=== PATIENT | male | born 1940 | race Caucasian/White ===

== ENCOUNTER → 2018-02-01 08:59 | Outpatient (CLI) | payer MEDICARE, SELFPAY ==
[2018-02-01 09:25] LABS: Add Manual Diff / Slide Review NO; Basophils Percent Auto 1.8 % (0-2); Eosinophils Percent Auto 1.2 % (2-4); Hematocrit 39.1 % (41-53); Hemoglobin 13.3 g/dL (13.5-17.5); Lymphocytes Percent Auto 22.3 % (25-40); Mean Corpuscular HGB Conc 34.1 % (30-36); Mean Corpuscular Hemoglobin 33.5 PG (26-34); Mean Corpuscular Volume 98.3 fL (80-100); Monocytes Percent Auto 10.6 % (3-14); Neutrophils Absolute Auto 2800 /uL (3000-5900); Neutrophils Percent Auto 64.1 % (50-75); Platelet Count 246 X10^3/uL (150-400); Red Blood Cell Count 3.98 X10^6/uL (4.5-5.9); White Blood Cell Count 4.3 X10^3/uL (4.5-11.0)
[2018-02-01 09:37] LABS: Alanine Aminotransferase 26 IU/L (21-72); Albumin 4.5 g/dL (3.5-5.0); Albumin Globulin Ratio 0.9 (1.0-2.8); Alkaline Phosphatase 48 U/L (38-126); Aspartate Aminotransferase 30 IU/L (17-59); BUN Creatinine Ratio 27.8 (6-22); Bilirubin Total 0.7 mg/dL (0.2-1.3); Blood Urea Nitrogen 25 mg/dL (9-20); Calcium 10.1 mg/dL (8.4-10.2); Carbon Dioxide 27 mmol/L (22-32); Chloride 103 mmol/L (98-107); Estimated Glomerular Filt Rate > 60.0 mL/min (>60); Globulin 5.1 g/dL (1.7-4.1); Glucose 102 mg/dL (80-110); HEMOLYSIS < 15 (0-50); Potassium 4.3 mmol/L (3.4-5.1); Sodium 143 mmol/L (137-145); Total Protein 9.6 g/dL (6.3-8.2)
[2018-02-04 15:03] LABS: Immunoglobulin M, Quantitative 4015 mg/dL (48-271)
[2018-02-04 16:15] LABS: Free Kappa Light Chain 37.5 mg/L (3.3-19.4); Free Kappa/ Lambda Ratio 3.99 (0.26-1.65); Free Lambda 9.4 mg/L (5.7-26.3)
[2018-02-05 16:05] LABS: Abnormal Protein Band 1 3.1 g/dL (NONE DETECTED); Albumin 4.1 g/dL (3.8-4.8); Alpha 1 Globulin 0.3 g/dL (0.2-0.3); Alpha 2 Globulin 0.6 g/dL (0.5-0.9); Beta 1 Globulin 0.4 g/dL (0.4-0.6); Gamma Globulin 3.4 g/dL (0.8-1.7)
== END ==
PROVIDERS: Family Provider Family Medicine; PCP Family Medicine; Visit Provider Internal Medicine Hematology & Oncology
DX: C88.0 Waldenstrom macroglobulinemia (principal)
CPT/HCPCS: 36415; 80053; 82232; 82784; 83883; 84155; 84165; 85025

== ENCOUNTER → 2018-07-16 14:20 | Outpatient (CLI) | payer MEDICARE, SELFPAY ==
[2018-07-16 14:41] LABS: Add Manual Diff / Slide Review NO; Basophils Absolute Auto 100 /uL (0-100); Basophils Percent Auto 1.9 % (0-2); Eosinophils Absolute Auto 100 /uL (0-450); Eosinophils Percent Auto 1.3 % (2-4); Hematocrit 38.7 % (41-53); Lymphocytes Absolute Auto 1200 /uL (1100-4500); Lymphocytes Percent Auto 23.2 % (25-40); Mean Corpuscular HGB Conc 33.5 % (30-36); Mean Corpuscular Hemoglobin 33.2 PG (26-34); Mean Corpuscular Volume 99.2 fL (80-100); Monocytes Absolute Auto 500 /uL (0-900); Monocytes Percent Auto 10.4 % (3-14); Neutrophils Absolute Auto 3200 /uL (1500-7000); Neutrophils Percent Auto 63.2 % (50-75); Platelet Count 235 X10^3/uL (150-400); Red Cell Distribution Width 13.9 % (11.6-14.8); White Blood Cell Count 5.1 X10^3/uL (4.5-11.0)
[2018-07-16 16:02] LABS: Alanine Aminotransferase 14 IU/L (21-72); Albumin 4.2 g/dL (3.5-5.0); Albumin Globulin Ratio 0.9 (1.0-2.8); Alkaline Phosphatase 48 U/L (38-126); Aspartate Aminotransferase 20 IU/L (17-59); Bilirubin Total 0.5 mg/dL (0.2-1.3); Blood Urea Nitrogen 28 mg/dL (9-20); Calcium 10.1 mg/dL (8.4-10.2); Carbon Dioxide 28 mmol/L (22-32); Chloride 106 mmol/L (98-107); Estimated Glomerular Filt Rate > 60.0 mL/min (>60); Globulin 4.9 g/dL (1.7-4.1); Glucose 92 mg/dL (80-110); HEMOLYSIS < 15 (0-50); Potassium 4.3 mmol/L (3.4-5.1); Sodium 141 mmol/L (137-145); Total Protein 9.1 g/dL (6.3-8.2)
[2018-07-19 14:26] LABS: Abnormal Protein Band 1 2.8 g/dL (NONE DETECTED); Albumin 3.7 g/dL (3.8-4.8); Alpha 1 Globulin 0.3 g/dL (0.2-0.3); Alpha 2 Globulin 0.6 g/dL (0.5-0.9); Beta 1 Globulin 0.3 g/dL (0.4-0.6); Gamma Globulin 3.1 g/dL (0.8-1.7); Protein, Total 8.2 g/dL (6.1-8.1)
== END ==
PROVIDERS: Family Provider Family Medicine; PCP Family Medicine
DX: C83.30 Diffuse large B-cell lymphoma, unspecified site (principal)
CPT/HCPCS: 36415; 80053; 84155; 84165; 85025

== ENCOUNTER 2020-10-29 21:36 | Emergency (ER) | payer MEDICARE, SELFPAY ==
[2020-10-29 21:48] VITALS: BP 172/114; PULSE 77; RESP 16; TEMP 37; O2SAT 98; BMI 23.1
[2020-10-29] MEDS: LIDO 1%/SOD BICARB 8.4% (10ML) 10 ML SYRINGE INJ (22:08)
[2020-10-29] MEDS: TET,DIPH,PERTUSS(ACELL),VAC/PF 0.5 ML SYRINGE IM (22:13)
[2020-10-29] MEDS: BACITRACIN OINT 0.9 GM PCKT 1 APPLIC TOP (22:14)
[2020-10-29 22:48] VITALS: BP 156/92; PULSE 67; RESP 17; O2SAT 97
--- NOTE | 2020-10-29 22:51 | ED_ITS ---
HPI - Wound/Laceration General Chief Complaint: Wound/Laceration Stated Complaint: Right hand laceration Time Seen by Provider: 10/29/20 21:44 Source: patient Mode of arrival: Ambulatory Limitations: no limitations History of Present Illness HPI narrative: 80-year-old gentleman with a history of waldenstroms macroglobulinemia, hypertension, hyperlipidemia who presents after stumbling and falling on to his right hand and sustaining a laceration to the thenar eminence. He has no other complaints of pain and no other trauma or injury. He is otherwise been in his usual state of excellent health with no recent fevers, cough, chills, nausea, dyspnea. No palpitations syncope or dizziness associated with the fall. Related Data Home Medications Medication Instructions Recorded Confirmed Loratadine (Claritin) 10 mg PO Q DAY #0 05/07/06 09/16/19 [FISH OIL] 2,400 mg PO QDAY #0 11/10/10 09/16/19 naproxen sodium 220 mg tablet 220 mg PO Q12H PRN 09/16/19 09/16/19 Previous Rx's Medication Instructions Recorded ezetimibe 10 mg-simvastatin 20 mg 1 tab PO HS #90 tab 04/26/16 tablet (Vytorin) cephalexin 500 mg capsule 500 mg PO TID 4 Days #12 cap 10/29/20 Allergies Allergy/AdvReac Type Severity Reaction Status Date / Time DUST AdvReac Unknown EAR/EYE Uncoded 07/10/17 13:11 INFECTIONS Review of Systems Review of Systems Narrative: Remainder of complete review of systems is otherwise unremarkable except for that included in the HPI. Patient History Medical History Benign non-nodular prostatic hyperplasia with lower urinary tract symptoms (04/06/16) Diffuse large B-cell lymphoma Essential hypertension (04/06/16) History of colonic polyps (04/06/16) Iron deficiency anemia (04/06/16) Mixed hyperlipidemia (04/06/16) Seasonal allergic rhinitis due to pollen (04/06/16) Waldenstrom's macroglobulinemia (04/06/16) Family History Father Hypertension Mother Breast cancer Heart disease Hypertension Sister Age: 77 Breast cancer Social History Smoking Status: Never smoker Smoking Status: Never smoker alcohol intake frequency: 0-2 drinks per day Substance Use Type: does not use Exam Narrative Exam Narrative: General: Alert appropriate in no acute distress Respiratory: Able to speak in full sentences, no obvious respiratory distress Skin: No obvious rashes, warm and dry Neurologic: Grossly intact no obvious asymmetries or abnormalities Psych: appropriate insight and affect, cooperative Thenar eminence right side with a 3 cm laceration at the crease. Heavily contaminated. Neurovascularly intact distal Initial Vital Signs Initial Vital Signs: Vital Signs Temperature 98.6 F 10/29/20 21:48 Pulse Rate 77 10/29/20 21:48 Respiratory Rate 16 10/29/20 21:48 Blood Pressure 172/114 H 10/29/20 21:48 Pulse Oximetry 98 10/29/20 21:48 Procedures Laceration Repair Right hand: Time of procedure: 22:54 Site: hand Side (If applicable): right Size (cm): 3 Description: linear and contaminated Depth: simple, single layer Local Anesthetic: lidocaine 1% and with bicarb Amount of anesthesia used (mL): 6 Pre-repair: wound explored, irrigated extensively and deep structures intact Skin layer closed with: nylon Size (cm): 4-0 Number of sutures: 6 Technique: simple, interrupted Course Orders Ordered: Discontinued Medications Bacitracin (Bacitracin Oint 0.9 Gm Pckt) 1 applic TOP NOW ONE Stop: 10/29/20 21:52 Last Admin: 10/29/20 22:14 Dose: 1 applic Documented by: BERNIE Cefazolin Sodium (Cephalexin 250 Mg Prepack) 1 bottle MISC SEEINSTR ONE Stop: 10/29/20 22:48 Cephalexin HCl (Cephalexin 250 Mg Capsule) 500 mg PO NOW ONE Stop: 10/29/20 22:48 Diphtheria/Tetanus/Acell Pertussis (Tet,Diph,Pertuss(Acell),Vac/Pf 0.5 Ml Syringe) 0.5 ml IM .ONCE ONE Stop: 10/29/20 22:13 Last Admin: 10/29/20 22:13 Dose: 0.5 ml Documented by: BERNIE Lidocaine/Sodium Bicarbonate (Lido 1%/Sod Bicarb 8.4% (10ml) 10 Ml Syringe) 10 ml INJ NOW ONE Stop: 10/29/20 21:52 Last Admin: 10/29/20 22:08 Dose: 10 ml Documented by: BERNIE Vital Signs Vital signs: Vital Signs - 8 hr 10/29/20 21:48 10/29/20 22:48 Temperature 98.6 F Pulse Rate 77 67 Respiratory Rate 16 17 Blood Pressure 172/114 H 156/92 H Pulse Oximetry 98 97 MDM - Wound/Laceration MDM Narrative Medical decision making narrative: 80-year-old gentleman with mechanical fall 3 cm laceration to the palmar surface of the right hand. Wound is thoroughly cleaned and sutured without difficulty. Because of the location as well as the heavy contamination him be placed on 5 days of Keflex. Recommended 10 days until sutures out. Questions are answered and patient is safe for home discharge Discharge Plan Departure Patient Disposition: Home Clinical Impression: Laceration Instructions: DI for Laceration Repair Activity Restrictions/Additional Instructions: Thank you for coming in today. Your wound was fairly contaminated and was cleaned completely here in the emergency department. Your tetanus and pertussis status was updated today. I am going to suggest that your sutures come out on or about November 07 Please use antibiotic ointment for the 1st couple of days and keep the wound covered Because of the contamination, I do want you to have 5 days of cephalexin. This prescription was electronically transmitted to [facility]. If you do notice increasing infection redness or drainage, you do need to be re-evaluated I hope you heal quickly Prescriptions: New cephalexin 500 mg capsule 500 mg PO TID 4 Days Qty: 12 RF: 0 No Action Loratadine (Claritin) 10 mg PO Q DAY Qty: 0 RF: 0 [FISH OIL] 2,400 mg PO QDAY Qty: 0 RF: 0 ezetimibe-simvastatin [Vytorin 10-20] 10 MG/20 MG tablet 1 tab PO HS Qty: 90 RF: 3 naproxen sodium 220 mg Tablet 220 mg PO Q12H PRN (Reason: Pain (Scale Score 4-6)) RF: 0 Referrals: Venkatesh Sotelo MD [Primary Care Provider] -
[2020-10-29] MEDS: cephALEXin 250 MG CAPSULE 500 MG PO (22:55)
[2020-10-29] MEDS: cephALEXin 250 MG PREPACK 1 BOTTLE MISC (22:55)
[2020-10-29 22:59] VITALS: BP 156/92; PULSE 78; RESP 18; O2SAT 97
== END 2020-10-29 23:01 | disposition home or self-care (01) ==
PROVIDERS: Emergency Provider Emergency Medicine; Family Provider Family Medicine; PCP Family Medicine
DX: S61.411A Laceration without foreign body of right hand, initial encounter (principal); W19.XXXA Unspecified fall, initial encounter; Z23 Encounter for immunization
CPT/HCPCS: 12002; 90471; 99283; 99284; 90715

== ENCOUNTER → 2022-08-30 15:56 | Outpatient (CLI) | payer MEDICARE, SELFPAY ==
[2022-08-30 16:49] LABS: Add Manual Diff / Slide Review NO; Basophils Absolute Auto 100 /uL (0-100); Basophils Percent Auto 1.2 % (0-2); Eosinophils Absolute Auto 100 /uL (0-450); Hematocrit 32.9 % (41-53); Hemoglobin 11.3 g/dL (13.5-17.5); Lymphocytes Absolute Auto 1000 /uL (1100-4500); Mean Corpuscular HGB Conc 34.5 % (30-36); Mean Corpuscular Volume 98.6 fL (80-100); Monocytes Absolute Auto 600 /uL (0-900); Monocytes Percent Auto 11.5 % (3-14); Neutrophils Absolute Auto 3600 /uL (1500-7000); Neutrophils Percent Auto 66.3 % (50-75); Platelet Count 263 X10^3/uL (150-400); Red Blood Cell Count 3.34 X10^6/uL (4.5-5.9); Red Cell Distribution Width 14.4 % (11.6-14.8); White Blood Cell Count 5.5 X10^3/uL (4.5-11.0)
[2022-08-30 17:03] LABS: BUN Creatinine Ratio 30.1 (6-22); Blood Urea Nitrogen 31 mg/dL (9-20); Carbon Dioxide 26 mmol/L (22-32); Chloride 104 mmol/L (98-107); Estimated Glomerular Filt Rate > 60 mL/min (>60); Glucose 98 mg/dL (80-110); HEMOLYSIS < 15 (0-50); Potassium 4.2 mmol/L (3.4-5.1); Sodium 140 mmol/L (137-145)
== END ==
PROVIDERS: Family Provider Family Medicine; PCP Internal Medicine Cardiovascular Disease; Referring Provider Orthopaedic Surgery; Visit Provider Orthopaedic Surgery
DX: Z01.818 Encounter for other preprocedural examination (principal)
CPT/HCPCS: 36415; 80048; 85025

== ENCOUNTER → 2022-09-12 10:21 | Outpatient (CLI) | payer MEDICARE, SELFPAY ==
[2022-09-12 11:15] LABS: Hematocrit 25.8 % (41-53)
== END ==
PROVIDERS: Family Provider Family Medicine; PCP Family Medicine; Referring Provider Physician Assistant; Visit Provider Physician Assistant
DX: Z98.890 Other specified postprocedural states (principal); Z96.651 Presence of right artificial knee joint
CPT/HCPCS: 36415; 85014; 85018

== ENCOUNTER → 2023-02-15 14:38 | Outpatient (CLI) | payer MEDICARE, SELFPAY ==
--- NOTE | 2023-02-15 14:42 | DI.CT.S_ITS ---
PROCEDURE: CT CHEST ABD PEL W CON INDICATIONS: Waldenstrom macroglobulinemia TECHNIQUE: After the administration of oral and intravenous contrast, axial sections acquired from the supraclavicular neck to the pubic symphysis. Coronal and sagittal reformats were performed. For radiation dose reduction, the following was used: automated exposure control, adjustment of mA and/or kV according to patient size. COMPARISON: [facility], CT, CHEST/ABD/PEL WITH CONTRAST, 09/13/2015, 13:07. FINDINGS: Image quality: Good Lungs and pleura: Scattered scarring and atelectasis. No consolidations or pleural effusions. No new or enlarging pulmonary nodules. Scattered granulomas are present as well. Mediastinum, heart, and esophagus: Borderline cardiomegaly. Suspected biatrial enlargement. No hiatal hernia. There are coronary and aortic valve calcifications. No pathologic lymph nodes by size criteria. Prominent pericardial folds are seen. Chest wall and thyroid: Left thyroid calcifications. No nodule identified requiring follow-up imaging. Chest wall is unremarkable. Solid organs: The liver is unremarkable. There are cysts and subcentimeter lesions that are too small to characterize, generally unchanged. These are probably cysts. Gallbladder is unremarkable. No pathologic dilation of the biliary system or pancreatic duct. No splenomegaly. No adrenal nodules. No suspicious renal lesion. Left parapelvic cysts are again seen. No hydronephrosis. Vessels and lymph nodes: No abdominal aortic aneurysm. The main portal vein appears patent. No lymphadenopathy by size criteria. There is some prominent inguinal lymph nodes, for example in the right measuring up to 1.3 cm in short axis on series 3, image 132. This is slightly increased compared to 2016. Bowel and peritoneum: No evidence of small bowel obstruction. Mild nonspecific gastric wall thickening, difficult to evaluate due to under distension. Moderate fecal loading. No pathologic ascites. There are colonic diverticula. Body wall: Left small bowel containing groin hernias, without obstruction. Pelvis: Bladder is distended. Heterogeneous enlarged prostate is not well evaluated on this study. Bones: No acute or suspicious osseous finding. A sclerotic region of the right iliac bone is stable from 2016. There are degenerative changes. IMPRESSION: No lymphadenopathy by size criteria. A few prominent inguinal lymph nodes are present, measuring up to 1.3 cm on the right in short axis, slightly increased compared to 2016. Heterogeneous enlarged prostate, consider correlation with PSA. Indeterminate small pulmonary nodules and subcentimeter hepatic lesions, too small to characterize. There also hepatic cysts. These are probably benign given stability. Attention on follow-up. Other findings as above. Dictated by: Joel Gonzalez M.D. on 02/15/2023 at 16:54 Approved by: Joel Gonzalez M.D. on 02/15/2023 at 17:02
[2023-02-15 15:13] LABS: Estimated Glomerular Filt Rate > 60 mL/min (>60)
== END ==
PROVIDERS: Radiology Diagnostic Radiology; Family Provider Family Medicine; PCP Family Medicine; Referring Provider Internal Medicine Hematology & Oncology; Visit Provider Internal Medicine Hematology & Oncology
DX: C88.0 Waldenstrom macroglobulinemia (principal); R91.8 Other nonspecific abnormal finding of lung field; K76.89 Other specified diseases of liver; I25.10 Atherosclerotic heart disease of native coronary artery without angina pectoris; I70.0 Atherosclerosis of aorta; K57.90 Diverticulosis of intestine, part unspecified, without perforation or abscess without bleeding; N40.0 Benign prostatic hyperplasia without lower urinary tract symptoms
CPT/HCPCS: 36415; 71260; 74177; 82565; Q9967

== ENCOUNTER → 2023-12-30 13:45 | Outpatient (CLI) | payer MEDICARE, SELFPAY ==
--- NOTE | 2023-12-30 13:47 | DI.ECHO.S_ITS ---
[facility] : : [address] : : [place] : : [id number] : : Phone: [phone] Echocardiogram Report + + :Name: DEANNA GONZALEZ Study Date: 12/30/2023 Height: 76 in : :[facility] ReadingLocation: Weight: 194 lb : : Gender: Male BSA: 2.2 m2 : :: 1940 Age: 83 yrs BP: 150/98 mmHg: :Reason For Study: AORTIC STENOSIS : :Ordering Physician: CHRISTAL AGUILLON : :E Performed By: Sera Barnes : :Referring: CHRISTAL AGUILLON E : + + Interpretation Summary Normal left ventricle size with ejection fraction 60-65%. The left atrium is mildly dilated. Moderate aortic stenosis. The peak aortic velocity is 3.0 m/sec. Mild aortic regurgitation. Mild mitral annular calcification. Mild mitral regurgitation. Mild to moderate tricuspid regurgitation. The right ventricular systolic pressure is estimated to be at least 25 mmHg based on an estimated right atrial pressure of 3 mm Hg. Procedure: A two-dimensional transthoracic echocardiogram with color flow and Doppler was performed. The study quality was technically adequate. There is no prior echocardiogram noted for this patient. The heart rate ranged between 62-71 bpm during the study. Left Ventricle: The left ventricle is normal in size and wall thickness. The ejection fraction is estimated to be 60-65%. There are no focal wall motion abnormalities. Diastolic function could not be accurately assessed due to contradictory data. Right Ventricle: The right ventricle is normal in size and function. Atria: The left atrium is mildly dilated. Right atrial size is normal. The atrial septum is aneurysmal. Cannot rule out possible patent foramen ovale. Mitral Valve: There is mild mitral annular calcification. The mitral valve leaflets appear mildly thickened, but open well. There is mild mitral regurgitation. Aortic Valve: The aortic valve is moderately calcified. There is moderately reduced leaflet mobility. There is moderate aortic stenosis. The peak aortic velocity is 3.0 m/sec. The aortic valve mean gradient is 22 mmHg. The calculated aortic valve area is 1.3 cm2. There is mild aortic regurgitation. Tricuspid Valve: The tricuspid valve is normal in structure and function. There is mild to moderate tricuspid regurgitation. The right ventricular systolic pressure is estimated to be at least 25 mmHg based on an estimated right atrial pressure of 3 mm Hg. Pulmonic Valve: The pulmonic valve leaflets are thin and pliable; valve motion is normal. There is mild pulmonic regurgitation. Great Vessels: The aortic root is normal size. The dimensions of the ascending aorta are normal. The IVC is of normal diameter and collapses greater than 50% with a sniff. This suggests a low right atrial pressure of 3 mm Hg. Pericardium/ Pleura There is no pericardial effusion. There is no pleural effusion. MMode/2D Measurements & Calculations LVIDd: 4.6 cm LVOT diam: 2.1 cm LVIDs: 2.8 cm Ao root diam: 3.6 cm FS: 38.4 % asc Aorta Diam: 3.1 cm IVSd: 0.94 cm Ao Arch Diam (Prox Trans): 2.1 cm LVPWd: 1.1 cm LV villarreal. diameter/BSA (cm/m^2): 2.1 LV sys. diameter/BSA (cm/m^2): 1.3 LA A2 area: 26.1 cm2 RA long axis: 6.3 cm LA A4 area: 21.5 cm2 RA area: 23.1 cm2 LA length (vol): 5.7 cm RA vol: 71.8 ml LA vol: 83.9 ml RA : 32.8 ml/m2 LA vol index: 38.3 ml/m2 IVC diam: 1.6 cm RVD1 (basal): 4.4 cm RVD2 (mid): 3.4 cm TAPSE: 2.7 cm Doppler Measurements & Calculations Ao V2 max: 304.5 cm/sec LVOT Max Kin: 108.3 cm/sec Ao V2 mean: 227.6 cm/sec LV V1 max P.7 mmHg Ao max P.9 mmHg LV V1 VTI: 24.0 cm Ao mean P.7 mmHg LORIN(I,D): 1.3 cm2 Ao V2 VTI: 64.2 cm LORIN(V,D): 1.3 cm2 sev ratio: 0.37 LORIN indexed to BSA (cm^2/m^2): 0.61 Med Peak E' Kin: 4.1 cm/sec TR max kin: 231.7 cm/sec Lat Peak E' Kin: 7.6 cm/sec TR max P.5 mmHg PA V2 max: 141.0 cm/sec PA V2 mean: 103.7 cm/sec PA mean P.7 mmHg PA pr(Accel): 39.6 mmHg SV(LVOT): 86.2 ml Electronically signed by: Basilio Ortiz on Reading Physician:12/30/2023 03:52 PM
== END ==
PROVIDERS: Family Provider Family Medicine; PCP Family Medicine; Referring Provider Family Medicine; Visit Provider Family Medicine
DX: I08.3 Combined rheumatic disorders of mitral, aortic and tricuspid valves (principal)
CPT/HCPCS: 93306